=== PATIENT | female | born 1990 | race Caucasian/White ===

== ENCOUNTER 2017-04-11 11:56 | Emergency (ER) | payer BC, MEDICAID, OTHER, SELFPAY ==
[~2017-04-11] VITALS: Ht 165.1 cm; Wt 78.6 kg
[2017-04-11] MEDS ORDERED: ZYRT10CA PO (12:18)
[2017-04-11 15:24] LABS: MEAN CORPUSCULAR HEMOGLOBIN 29.1 pg (27.0-33.0); MEAN CORPUSCULAR HGB CONC 33.2 g/dl (32.0-36.5); MEAN CORPUSCULAR VOLUME 87.5 fl (80.0-96.0); RED CELL DISTRIBUTION WIDTH 13.7 % (11.5-14.5); WHITE BLOOD COUNT 5.3 K/mm3 (4.0-10.0)
[2017-04-11 18:15] VITALS: BP 126/78
--- NOTE | 2017-04-12 08:03 | REP ---
Clinical: Abdominal pain and . Technique: Transabdominal pelvic ultrasound followed by transvaginal examination for better evaluation of the endometrium and adnexa with color Doppler evaluation of the ovaries. Findings: Heterogeneous retroverted uterus measures 7.5 x 5.3 x 6.0 cm. Endometrial complex demonstrates decidual reaction and measures 24 mm. No discrete intrauterine is appreciated. The bilateral ovaries are normal in appearance and vascularity without torsion. Right ovary measures 2.9 x 2.4 x 1.9 cm; RI 0.49. Left ovary measures 3.6 x 2.3 x 1.6 cm; RI 0.61. No pelvic fluid or adnexal mass lesion. Impression: Retroverted uterus demonstrates decidual reaction without intrauterine . Differential diagnosis includes missed and early . Correlation with serial HCG levels recommended. Signed by George Paige MD 04/11/2017 05:12 P
== END 2017-04-11 18:16 | disposition home or self-care (01) ==
LOC: M ED 11:56
DX: O26.899 Other specified pregnancy related conditions, unspecified trimester (principal); R10.9 Unspecified abdominal pain; Z88.1 Allergy status to other antibiotic agents; Z79.899 Other long term (current) drug therapy

== ENCOUNTER → 2017-04-13 | Outpatient (CLI) | payer BC ==
[~2017-04-13] MED LIST: LANS15CA PO; REGL10TA6 PO; ZYRT10CA PO; prenatal vitamins PO
== END ==
LOC: M WUC 13:14
PROVIDERS: ATTEND Emergency Medicine
DX: R10.9 Unspecified abdominal pain (principal)

== ENCOUNTER 2017-05-08 00:02 | Emergency (ER) | payer BC, MEDICAID ==
[~2017-05-08] VITALS: Ht 165.1 cm; Wt 79.1 kg
[~2017-05-08 00:02] MED LIST changes: -LANS15CA PO; -REGL10TA6 PO; -prenatal vitamins PO
[2017-05-08] MEDS ORDERED: LANS15CA PO (00:16)
[2017-05-08] MEDS ORDERED: prenatal vitamins PO (00:16)
[2017-05-08] MEDS ORDERED: NS 1,000 ML IV ONE (02:30)
[2017-05-08] MEDS: MORPHINE 4 MG/ML 1ML SYRINGE IV ONE ×2 (02:30→02:40)
[2017-05-08] MEDS ORDERED: diphenhydrAMINE INJ 50MG/ML VIAL (J1200) IV ONE (02:30)
[2017-05-08] MEDS ORDERED: METOCLOPRAMIDE INJ 10MG/2ML VIAL (J2765) IV ONE (02:30)
[2017-05-08] MEDS ORDERED: REGL10TA6 PO (05:05)
[2017-05-08 05:27] VITALS: BP 109/60
== END 2017-05-08 05:31 | disposition home or self-care (01) ==
LOC: M ED 00:02
DX: O99.89 Other specified diseases and conditions complicating pregnancy, childbirth and the puerperium (principal); G43.909 Migraine, unspecified, not intractable, without status migrainosus; Z79.899 Other long term (current) drug therapy; Z88.0 Allergy status to penicillin; Z88.8 Allergy status to other drugs, medicaments and biological substances
CPT/HCPCS: 96361; 96374; 96375; 99283; J1200; J2765

== ENCOUNTER → 2017-07-15 | Outpatient (CLI) | payer MEDICAID ==
[~2017-07-15] MED LIST changes: +LANS15CA PO; +REGL10TA6 PO; +prenatal vitamins PO
--- NOTE | 2017-07-18 07:20 | REP ---
Obstetric ultrasound for anatomy: There is a single intrauterine gestation in a vertex presentation. heart rate is 163 beats per minute. The placenta is posterior. There is no placenta previa or abruptio. The placenta is grade zero. Subjectively the amniotic fluid volume is normal. The cervix measures 3.9 cm length. By the ultrasound today gestational age is 18-week 6 days with an ELICEO of 12/10/2017. By LMP gestational age is 18 weeks 6 days. weight is 207 and gram (0 pounds, 9 ounces). This is the 15th percentile for 18 weeks 6 days. The following anatomic structures are identified and are unremarkable: Intracranial lateral ventricles, choroid plexus, cerebellum, cisterna magna, facial profile, upper lip, lungs, diaphragm, stomach, cord insertion, three-vessel cord, kidneys, bladder, spine and upper lower extremities. Suboptimally demonstrated are the four-chamber view of the heart and the cardiac right and left ventricular outflow tracts. A followup study dedicated to these structures might be considered. Otherwise, there are no anomalies. Signed by Juan Alberto Madrigal MD 07/15/2017 03:41 P
== END ==
LOC: M SMT 13:48
PROVIDERS: ATTEND Advanced Practice Midwife
DX: Z34.82 Encounter for supervision of other normal pregnancy, second trimester (principal); Z3A.19 19 weeks gestation of pregnancy

== ENCOUNTER → 2017-08-08 | Outpatient (CLI) | payer OTHER ==
[2017-08-08 16:02] LABS: ALT/SGPT 18 U/L (12-78); AST/SGOT 18 U/L (7-37); BILIRUBIN,TOTAL 0.2 MG/DL (0.2-1.0); CREATININE FOR GFR 0.47 MG/DL (0.55-1.02); GLOMERULAR FILTRATION RATE > 60.0 (>60); LDH LACTATE DEHYDROGENASE 164 U/L (84-246); URIC ACID 3.9 MG/DL (2.6-6.0)
[2017-08-08 16:33] LABS: TOTAL PROTEIN,RANDOM URINE 17.5 MG/DL (0.0-12.0)
== END ==
LOC: M SMT 13:41
DX: Z34.81 Encounter for supervision of other normal pregnancy, first trimester (principal)
CPT/HCPCS: 84460

== ENCOUNTER → 2017-08-12 | Outpatient (REF) | payer OTHER ==
[2017-08-12 16:22] LABS: APPEARANCE, URINE CLEAR (CLEAR); BACTERIA, URINE AUTO NEGATIVE (NEGATIVE); BILIRUBIN, URINE AUTO NEGATIVE (NEGATIVE); BLOOD, URINE BLOOD NEGATIVE (NEGATIVE); COLOR, URINE YELLOW (YELLOW); GLUCOSE, URINE (UA) AUTO NEGATIVE (NEGATIVE); KETONE, URINE AUTO NEGATIVE (NEGATIVE); LEUKOCYTE ESTERASE, URINE AUTO NEGATIVE (NEGATIVE); MUCUS, URINE SMALL (NEGATIVE); NITRITE, URINE AUTO NEGATIVE (NEGATIVE); PROTEIN, URINE AUTO NEGATIVE (NEGATIVE); RBC, URINE AUTO 1 /HPF (0-3); SPECIFIC GRAVITY URINE AUTO 1.024 (1.002-1.035); SQUAMOUS EPITHELIAL CELL UR AU 0 /HPF (0-6); UROBILINOGEN, URINE AUTO 0.2 mg/dL (0.0-2.0); WBC, URINE AUTO 1 /HPF (0-3)
== END ==
LOC: M LAB REF 15:47
DX: M54.5 Low back pain (principal); R10.9 Unspecified abdominal pain; R07.9 Chest pain, unspecified

== ENCOUNTER → 2017-09-14 | Outpatient (CLI) | payer OTHER ==
[2017-09-14 14:20] LABS: HEMOGLOBIN 11.9 g/dl (12.0-16.0); MEAN CORPUSCULAR HEMOGLOBIN 30.4 pg (27.0-33.0); MEAN CORPUSCULAR HGB CONC 33.1 g/dl (32.0-36.5); MEAN CORPUSCULAR VOLUME 92.1 fl (80.0-96.0); PLATELET COUNT, AUTOMATED 255 10^3/uL (150-450); RED BLOOD COUNT 3.91 10^6/uL (4.00-5.40); RED CELL DISTRIBUTION WIDTH 13.3 % (11.5-14.5)
[2017-09-14 14:44] LABS: GLUCOSE CHALLENGE TEST 1 HOUR 82 MG/DL (LESS THAN 140)
== END ==
LOC: M SMT 10:20
DX: Z36.89 Encounter for other specified antenatal screening (principal); Z3A.00 Weeks of gestation of pregnancy not specified
CPT/HCPCS: 82950

== ENCOUNTER → 2017-11-14 | Outpatient (REF) | payer OTHER | LOC: M LAB REF 13:02 | DX: Z34.83 Encounter for supervision of other normal pregnancy, third trimester (principal); Z3A.00 Weeks of gestation of pregnancy not specified ==

== ENCOUNTER 2017-11-19 09:28 | Outpatient (CLI) | payer OTHER ==
[2017-11-19] MEDS: ONDANSETRON 4 MG ORAL DISINTEGRATING TAB (Q0162 PER 1MG) PO ×2 (10:25→14:54)
[2017-11-19 10:32] LABS: HEMOGLOBIN 14.3 g/dl (12.0-15.5); MEAN CORPUSCULAR VOLUME 88.1 fl (80.0-96.0); PLATELET COUNT, AUTOMATED 220 10^3/uL (150-450); RED BLOOD COUNT 4.77 10^6/uL (4.00-5.40); RED CELL DISTRIBUTION WIDTH 13.7 % (11.5-14.5); WHITE BLOOD COUNT 7.6 10^3/uL (4.0-10.0)
[2017-11-19 10:47] LABS: ALBUMIN 2.6 GM/DL (3.2-5.2); ALBUMIN/GLOBULIN RATIO 0.68 (1.00-1.93); ALKALINE PHOSPHATASE 170 U/L (45-117); ALT/SGPT 17 U/L (12-78); ANION GAP 10 MEQ/L (8-16); AST/SGOT 38 U/L (7-37); BILIRUBIN,TOTAL 0.5 MG/DL (0.2-1.0); BLOOD UREA NITROGEN 10 MG/DL (7-18); CARBON DIOXIDE LEVEL 25 MEQ/L (21-32); CHLORIDE LEVEL 106 MEQ/L (98-107); CREATININE FOR GFR 0.62 MG/DL (0.55-1.30); GLOMERULAR FILTRATION RATE > 60.0 (>60); GLUCOSE, FASTING 110 MG/DL (70-100); POTASSIUM SERUM 4.4 MEQ/L (3.5-5.1); SODIUM LEVEL 141 MEQ/L (136-145); TOTAL PROTEIN 6.4 GM/DL (6.4-8.2)
[2017-11-19] MEDS: PROMETHAZINE INJ 25 MG/ML VIAL (J2550) IV (11:16)
[2017-11-19] MEDS: LACTATED RINGER'S 1000 ML IV (11:28)
[2017-11-19] MEDS: LR 1,000 ML IV ×2 (11:29→14:57)
[2017-11-19 13:33] LABS: INFLUENZA A AMPLIFICATION NEGATIVE (NEGATIVE); INFLUENZA B AMPLIFICATION NEGATIVE (NEGATIVE)
[2017-11-19] MEDS: NS 1,000 ML IV (14:57)
[2017-11-19] MEDS: FAMOTIDINE 20 MG TAB PO (17:03)
== END 2017-11-19 20:30 | disposition home or self-care (01) ==
LOC: M LDO 09:28
DX: O21.9 Vomiting of pregnancy, unspecified (principal); O99.89 Other specified diseases and conditions complicating pregnancy, childbirth and the puerperium; R19.7 Diarrhea, unspecified; Z3A.37 37 weeks gestation of pregnancy
CPT/HCPCS: Q0162

== ENCOUNTER → 2017-12-05 | Outpatient (CLI) | payer OTHER ==
[2017-12-05 19:21] LABS: ALT/SGPT 17 U/L (12-78); AST/SGOT 18 U/L (7-37); BILIRUBIN,TOTAL 0.3 MG/DL (0.2-1.0); GLOMERULAR FILTRATION RATE > 60.0 (>60); LDH LACTATE DEHYDROGENASE 184 U/L (84-246); URIC ACID 5.3 MG/DL (2.6-6.0)
[2017-12-05 19:31] LABS: BASO % 0.1 % (0.0-1.0); EOS # 0.1 10^3/uL (0.0-0.50); EOS % 1.7 % (0.0-3.0); HEMATOCRIT 41.5 % (36.0-47.0); HEMOGLOBIN 13.8 g/dl (12.0-15.5); IMMATURE GRANULOCYTE % 0.8 % (0-3.0); LYMPH # 1.3 10^3/uL (1.5-6.5); LYMPH % 15.3 % (24.0-44.0); MEAN CORPUSCULAR HEMOGLOBIN 30.2 pg (27.0-33.0); MEAN CORPUSCULAR HGB CONC 33.3 g/dl (32.0-36.5); MEAN CORPUSCULAR VOLUME 90.8 fl (80.0-96.0); MONO # 0.6 10^3/uL (0.0-0.8); MONO % 7.1 % (0.0-5.0); NEUTROPHILS # 6.2 10^3/uL (1.8-7.7); PLATELET COUNT, AUTOMATED 282 10^3/uL (150-450); RED BLOOD COUNT 4.57 10^6/uL (4.00-5.40); RED CELL DISTRIBUTION WIDTH 13.9 % (11.5-14.5); WHITE BLOOD COUNT 8.3 10^3/uL (4.0-10.0)
== END ==
LOC: M SMT 14:01
DX: Z34.83 Encounter for supervision of other normal pregnancy, third trimester (principal)
CPT/HCPCS: 84460

== ENCOUNTER 2017-12-19 07:34 | Inpatient (IN) | payer OTHER ==
[2017-12-19] MEDS: miSOPROStol 50 MCG 1/2 TAB (S0191) PO ×4 (09:24→22:39)
[2017-12-19 09:32] LABS: HEMATOCRIT 38.3 % (36.0-47.0); HEMOGLOBIN 13.1 g/dl (12.0-15.5); MEAN CORPUSCULAR HEMOGLOBIN 29.8 pg (27.0-33.0); MEAN CORPUSCULAR HGB CONC 34.2 g/dl (32.0-36.5); MEAN CORPUSCULAR VOLUME 87.2 fl (80.0-96.0); PLATELET COUNT, AUTOMATED 238 10^3/uL (150-450); RED BLOOD COUNT 4.39 10^6/uL (4.00-5.40); RED CELL DISTRIBUTION WIDTH 13.4 % (11.5-14.5); WHITE BLOOD COUNT 7.3 10^3/uL (4.0-10.0)
[2017-12-19] MEDS ORDERED: LR 1,000 ML IV (22:39)
[2017-12-19] MEDS ORDERED: OXYTOCIN DRIP 30 UNITS in APPROPRIATE DILUENT 1 EA IV (22:45)
[2017-12-20] MEDS ORDERED: OXYTOCIN 30 UNITS IN 0.9% NaCl 500ML IV BAG (J2590) As Ordered (03:31)
[2017-12-20] MEDS ORDERED: FENTANYL 2MCG/ML ROPIVACAINE 0.2% IN 0.9% NACL 200ML IVBAG As Ordered (06:15)
[2017-12-20] MEDS: OXYTOCIN DRIP 30 UNITS in APPROPRIATE DILUENT 1 EA IV (09:42)
[2017-12-20] MEDS ORDERED: MEASLES,MUMPS,RUBELLA VACCINE INJ (MMR-II) (90707) SC (09:45)
[2017-12-20] MEDS ORDERED: DIBUCAINE 1% OINTMENT 30GM TOP (09:45)
[2017-12-20] MEDS ORDERED: METHYLERGONOVINE MALEATE 0.2 MG TAB PO (09:45)
[2017-12-20] MEDS ORDERED: ONDANSETRON 4MG/2ML VIAL (J2405) IV ×2 (09:45→10:00)
[2017-12-20] MEDS ORDERED: DOCUSATE SODIUM 100 MG CAP PO (09:45)
[2017-12-20] MEDS ORDERED: RHOGAM 300 MCG (1500 IU) INJ (J2790) IM (09:45)
[2017-12-20] MEDS ORDERED: NALOXONE INJ 0.4 MG/1 ML VIAL (J2310) IV (10:00)
[2017-12-20] MEDS ORDERED: FENTANYL/ROPIVACAINE/NACL BAG 200 ML EPIDURAL (10:00)
[2017-12-20] MEDS ORDERED: LACTATED RINGER'S 1000 ML IV (10:00)
[2017-12-20] MEDS ORDERED: REFRIGERATOR IV KEYS XX (10:00)
[2017-12-20] MEDS ORDERED: EPIDURAL COMMENT XX (10:00)
[2017-12-20] MEDS ORDERED: EPIDURAL/PCA KEYS XX (10:00)
[2017-12-20] MEDS ORDERED: ePHEDrine SULFATE 25 MG/5 ML(5MG/ML) SYRINGE IV (10:00)
[2017-12-20] MEDS ORDERED: diphenhydrAMINE INJ 50MG/ML VIAL (J1200) IV (10:00)
[2017-12-20] MEDS: IBUPROFEN 800 MG TAB PO (17:43)
[2017-12-20] MEDS: ACETAMINOPHEN 500 MG TAB PO (21:35)
[2017-12-21] MEDS: IBUPROFEN 800 MG TAB PO (05:44)
[2017-12-21] MEDS: PRENATAL VITAMINS CHEWABLE TABLET PO (07:56)
== END 2017-12-21 15:30 | disposition home or self-care (01) | DRG 560 ==
LOC: M LDI 07:34 → M OBS 12-20 12:12
PROVIDERS: Advanced Practice Midwife
PROC: 3E033VJ Introduction of Other Hormone into Peripheral Vein, Percutaneous Approach (ICD-10-PCS; 2017-12-19)
PROC: 10E0XZZ Delivery of Products of Conception, External Approach (ICD-10-PCS; principal; 2017-12-20)
PROC: 0HQ9XZZ Repair Perineum Skin, External Approach (ICD-10-PCS; 2017-12-20)
DX: O48.0 Post-term pregnancy (principal); O70.0 First degree perineal laceration during delivery; Z37.0 Single live birth; Z3A.41 41 weeks gestation of pregnancy

== ENCOUNTER → 2018-04-07 | Outpatient (REF) | payer OTHER, MEDICAID | LOC: M SFHCLERA 17:02 | DX: N89.8 Other specified noninflammatory disorders of vagina (principal) | CPT/HCPCS: 87086 ==

== ENCOUNTER → 2018-06-13 | Outpatient (CLI) | payer OTHER | LOC: M RAD 09:37 | DX: K59.00 Constipation, unspecified (principal); R10.13 Epigastric pain | CPT/HCPCS: 76700 ==

== ENCOUNTER → 2018-10-18 | Outpatient (REF) | payer OTHER, MEDICAID ==
[~2018-10-18] MED LIST changes: +EVEN1000 EC; +IBUP-1114 PO; +MAPA500T2 PO; +TRIA25CR TOP; +ZOFR4TAB16 SL
== END ==
LOC: M SFHCLERA 18:23
PROVIDERS: ATTEND Nurse Practitioner Family
DX: J02.9 Acute pharyngitis, unspecified (principal)

== ENCOUNTER → 2018-12-07 | Outpatient (REF) | payer OTHER, MEDICAID | LOC: M LAB REF 13:54 | PROVIDERS: ATTEND Advanced Practice Midwife | DX: R30.0 Dysuria (principal) ==

== ENCOUNTER → 2018-12-14 | Outpatient (CLI) | payer OTHER ==
--- NOTE | 2018-12-15 16:09 | REP ---
Clinical: Right lower quadrant pain . Technique: Transabdominal pelvic ultrasound followed by transvaginal examination for better evaluation of the endometrium and adnexa with color Doppler evaluation of the ovaries. Findings: Bladder is unremarkable and measures 9.0 x 9.0 x 6.7 cm . Normal retroverted uterus measures 8.6 x 5.2 x 4.4 cm . The endometrial complex measures 18.6 mm thickness. No discrete uterine or endometrial abnormalities are appreciated. Bilateral ovaries are normal in appearance and vascularity without evidence for torsion. Right ovary measures 3.6 x 2.2 x 3.1 cm ; R I = 0.37 . Left ovary measures 4.4 x 1.8 x 2.4 cm ; R I = 0.52 . Trace pelvic free fluid . Impression: 1. Heterogeneous thickened endometrium likely physiologic and related to menstrual cycle. Electronically Signed by George Paige MD 12/15/2018 04:01 P
== END ==
LOC: M RAD 14:40
PROVIDERS: ATTEND Advanced Practice Midwife
DX: R10.813 Right lower quadrant abdominal tenderness (principal)

== ENCOUNTER → 2019-06-05 | Outpatient (CLI) | payer MEDICAID, OTHER ==
--- NOTE | 2019-06-06 04:46 | REP ---
Clinical: Swelling. Lump. Technique: Real time gold scale and color evaluation using linear high frequency transducer. Findings: The parotid glands appear normal. Ultrasound examination at the site of left sided lump felt by the patient corresponds to lymph node measuring 8 x 4 x 8 mm. Similar right-sided lymph node measures 7 x 3 x 4 mm. Impression: 1. No significant abnormality. 2. Normal appearing lymph nodes. Electronically Signed by George Paige MD 06/06/2019 04:37 A
== END ==
LOC: M RAD 17:16
PROVIDERS: ATTEND Otolaryngology
DX: R22.1 Localized swelling, mass and lump, neck (principal)

== ENCOUNTER → 2019-07-08 | Outpatient (REF) | payer OTHER, MEDICAID | LOC: M SFHCLERA 12:27 | PROVIDERS: ATTEND Nurse Practitioner Family | DX: R19.7 Diarrhea, unspecified (principal) ==